=== PATIENT | female | born 1990 | race Two or more races ===

== ENCOUNTER 2018-11-18 11:48 | Emergency (ER) | payer OTHER ==
[2018-11-18 12:18] LABS: BASOPHILS % (AUTO) 0.6 %; EOSINOPHILS % (AUTO) 0.8 %; HGB - HEMOGLOBIN 14.5 g/dL (12.0-16.0); LYMPHOCYTES # (AUTO) 1.1 10^3/uL (1.5-3.5); MEAN CORPUSCULAR HGB CONC 33.7 g/dL (32.0-36.0); MEAN CORPUSCULAR VOLUME 91.9 fL (81.0-99.0); MEAN PLATELET VOLUME 10.3 fL (7.9-10.8); MONOCYTES # (AUTO) 0.4 10^3/uL (0.0-1.0); MONOCYTES % (AUTO) 8.5 %; NEUTROPHILS # (AUTO) 3.3 10^3/uL (1.5-6.6); NEUTROPHILS % (AUTO) 66.7 %; PLT - PLATELET COUNT 209 10^3/uL (130-450); RED BLOOD COUNT 4.68 10^6/uL (4.20-5.40); RED CELL DISTRIBUTION WIDTH 12.2 % (12.0-15.0)
[2018-11-18] MEDS ORDERED: ONDANSETRON 4 MG/2 ML VIAL IVP STA (12:26)
[2018-11-18] MEDS ORDERED: SODIUM CHLORIDE 0.9% 1,000 ML IV ONE (12:26)
[2018-11-18] MEDS ORDERED: KETOROLAC 30 MG/ML VIAL IVP STA (12:26)
[2018-11-18 12:27] LABS: GLUCOSE, URINE (UA) NEGATIVE (NEGATIVE); KETONES,URINE (UA) >=80 mg/dL (NEGATIVE); LEUKOCYTE ESTERASE, URINE SMALL (NEGATIVE); NITRITE,URINE NEGATIVE (NEGATIVE); OCCULT BLOOD,URINE SMALL (NEGATIVE); PROTEIN,URINE NEGATIVE (NEGATIVE); UROBILINOGEN,URINE 2 E.U./dL (NORMAL)
[2018-11-18 12:31] LABS: BILIRUBIN,URINE NEGATIVE (NEGATIVE); CLARITY,URINE HAZY (CLEAR); HCG UR QUAL NEGATIVE; ICTOTEST,URINE NEGATIVE
[2018-11-18 12:33] LABS: ALBUMIN 4.3 g/dL (3.2-5.5); ALBUMIN/GLOBULIN RATIO 1.2 (1.0-2.2); BILIRUBIN,TOTAL 0.6 mg/dL (0.2-1.0); CALCIUM 9.1 mg/dL (8.5-10.3); CREATININE 0.7 mg/dL (0.4-1.0); TOTAL PROTEIN 7.8 g/dL (6.7-8.2)
[2018-11-18 12:42] LABS: BACTERIA,URINE Moderate /HPF (None Seen); SQUAMOUS EPITHELIAL CELL,UR MANY Squamous (<= Few)
[2018-11-18] MEDS ORDERED: POTASSIUM CHLORIDE 20 MEQ TABLET PO STA ×2 (12:49→13:42)
[2018-11-18] MEDS ORDERED: cefTRIAXone 1 GM in SODIUM CHLORIDE 0.9% MINIBAG 100 ML IV STA (12:57)
[2018-11-18 13:23] VITALS: BP 130/68
--- NOTE | 2018-11-18 13:59 | ED Physician Documentation ---
PD HPI ABD PAIN - Stated complaint Stated Complaint: ABD PX - Chief complaint Chief Complaint: Abd Pain - History obtained from History obtained from: Patient - History of Present Illness Timing - onset: Yesterday Timing - duration: Days (2) Timing - details: Gradual onset, Still present Quality: Sharp, Pain Location: RUQ Radiation: Right flank Improved by: Laying still, Vomiting Worsened by: Moving, Position, Palpation Associated symptoms: Nausea, Vomiting Similar symptoms before: No diagnosis Recently seen: Clinic - Additional information Additional information: 28 y/o female with prior history of pelvic pain without diagnosis has developed pelvic cramping, urinary symptoms and pain in the right flank accompanied by nausea and vomiting. She feels ill. Review of Systems Constitutional: reports: Fever, Chills, Myalgias, Fatigue Eyes: denies: Decreased vision Ears: denies: Ear pain Nose: denies: Congestion Throat: denies: Sore throat Cardiac: denies: Chest pain / pressure, Palpitations Respiratory: denies: Dyspnea, Cough GI: reports: Abdominal Pain, Nausea, Vomiting : reports: Dysuria Skin: denies: Rash Musculoskeletal: reports: Back pain. denies: Neck pain, Extremity pain Neurologic: denies: Generalized weakness, Focal weakness, Numbness PD PAST MEDICAL HISTORY - Present Medications Home Medications: Ambulatory Orders Medication Instructions Recorded Confirmed Ondansetron Odt [Zofran] 4 mg TL Q6H PRN #10 tablet 11/18/18 Oxycodone HCl/Acetaminophen 1 - 2 each PO Q6H PRN #14 tablet 11/18/18 [Percocet 5-325 mg Tablet] Sulfamethoxazole/Trimethoprim 1 each PO BID #14 tablet 11/18/18 [Sulfamethoxazole-Tmp Ds Tablet] - Allergies Allergies/Adverse Reactions: Allergies Allergy/AdvReac Type Severity Reaction Status Date / Time No Known Drug Allergies Allergy Verified 11/18/18 12:02 PD ED PE NORMAL - Vitals Vital signs reviewed: Yes (hypertensive mild ) - General General: Alert and oriented X 3, Well developed/nourished, Other (appears to be in pain with brands editor tone and flat affect. ) - HEENT HEENT: Atraumatic, PERRL, EOMI - Neck Neck: Supple, no meningeal sign, No bony TTP - Cardiac Cardiac: RRR, No murmur - Respiratory Respiratory: No respiratory distress, Clear bilaterally - Abdomen Abdomen: Soft, Other (RUQ tenderness to bimanual palpation of the right kidney) - Back Back: No spinal TTP, Other (right CVA tenderness ) - Derm Derm: Normal color, Warm and dry, No rash - Extremities Extremities: No deformity, No edema - Neuro Neuro: Alert and oriented X 3, health science writer 2-12 intact, No motor deficit, No sensory deficit, Normal speech Eye Opening: Spontaneous Motor: Obeys Commands Verbal: Oriented GCS Score: 15 - Psych Psych: Normal mood Results - Vitals Vitals: Vital Signs - 24 hr 11/18/18 11/18/18 11:59 13:22 Temperature 35.6 C L 36.3 C L Heart Rate 80 69 Respiratory 20 16 Rate Blood Pressure 155/79 H 130/68 O2 Saturation 97 98 Oxygen O2 Source Room air - Labs Labs: Laboratory Tests 11/18/18 11/18/18 11/18/18 12:06 12:12 12:12 WBC 5.0 RBC 4.68 Hgb 14.5 Hct 43.0 MCV 91.9 MCH 31.0 MCHC 33.7 RDW 12.2 Plt Count 209 MPV 10.3 Neut # (Auto) 3.3 Lymph # (Auto) 1.1 L [place] # (Auto) 0.4 Eos # (Auto) 0.0 Baso # (Auto) 0.0 Absolute Nucleated RBC 0.00 Nucleated RBC % 0.0 Sodium 138 Potassium 3.1 L Chloride 101 Carbon Dioxide 27 Anion Gap 10.0 BUN 12 Creatinine 0.7 Estimated GFR (MDRD) 99 Glucose 102 H Calcium 9.1 Total Bilirubin 0.6 AST 20 ALT 19 Alkaline Phosphatase 52 Total Protein 7.8 Albumin 4.3 Globulin 3.5 Albumin/Globulin Ratio 1.2 Lipase 19 L Urine Color YELLOW Urine Clarity HAZY Urine pH 6.0 Ur Specific [place] 1.025 Urine Protein NEGATIVE Urine Glucose (UA) NEGATIVE Urine Ketones >=80 H Urine Occult Blood SMALL H Urine Nitrite NEGATIVE Urine Bilirubin NEGATIVE Urine Urobilinogen 2 H Ur Leukocyte Esterase SMALL H Urine RBC 11-25 H Urine WBC 6-10 H Ur Squamous Epith Cells MANY Squamous H Urine Bacteria Moderate H Ur Microscopic Review INDICATED Urine Culture Comments NOT INDICATED Urine HCG, Qual NEGATIVE Procedures - Bedside sono Bedside sono by EMP: Examination of the right kidney with the bedside ultrasound shows a sonographically tender kidney without evidence of hydronephrosis. The left kidney is sonographically nontender. - IVC sono (time) 1220 Bedside IVC sono: IVC measures (cm) (1.12), IVC collapsed c insp (cm) (cokmplete), Dehydration (est 1-2 liter deficit) PD MEDICAL DECISION MAKING - ED course Complexity details: reviewed old records, reviewed results, re-evaluated patient, considered differential, d/w patient ED course: 28-year-old female with right flank pain urinary symptoms nausea and vomiting is found to be dehydrated and has a tender right kidney as well as evidence of infection in urine collected from the bladder. She is administered intravenous saline Toradol Rocephin and Zofran. She feels much better at the conclusion of treatment. Departure - Departure Disposition: 01 Home, Self Care Clinical Impression: Pyelonephritis Condition: Stable Instructions: ED Kidney Infec Female Follow-Up: IRENE ZALDIVAR [Primary Care Provider] - Prescriptions: Ondansetron Odt [Zofran] 4 mg TL Q6H PRN #10 tablet PRN Reason: Nausea / Vomiting Oxycodone HCl/Acetaminophen [Percocet 5-325 mg Tablet] 1 - 2 each PO Q6H PRN #14 tablet PRN Reason: pain Sulfamethoxazole/Trimethoprim [Sulfamethoxazole-Tmp Ds Tablet] 1 each PO BID #14 tablet Forms: Activity restrictions
== END 2018-11-18 14:10 | disposition home or self-care (01) ==
LOC: ED 11:48
DX: N12 Tubulo-interstitial nephritis, not specified as acute or chronic (principal); E86.0 Dehydration
CPT/HCPCS: 36415; 80053; 81001; 81025; 83690; 85025; 96361; 96365; 96375; 99283; 99284; A9270; 81003; 87086

== ENCOUNTER 2019-04-27 19:52 | Emergency (ER) | payer OTHER ==
[2019-04-27 20:13] LABS: BILIRUBIN,URINE NEGATIVE (NEGATIVE); GLUCOSE, URINE (UA) NEGATIVE (NEGATIVE); KETONES,URINE (UA) NEGATIVE (NEGATIVE); LEUKOCYTE ESTERASE, URINE NEGATIVE (NEGATIVE); NITRITE,URINE NEGATIVE (NEGATIVE); OCCULT BLOOD,URINE TRACE-INTA (NEGATIVE); PROTEIN,URINE NEGATIVE (NEGATIVE); UROBILINOGEN,URINE 0.2 (NORMAL) E.U./dL (NORMAL)
[2019-04-27 20:14] LABS: CLARITY,URINE CLEAR (CLEAR); HCG UR QUAL NEGATIVE
[2019-04-27 20:21] LABS: BACTERIA,URINE None Seen /HPF (None Seen); RBC,URINE 0-5 /HPF (0-5); SQUAMOUS EPITHELIAL CELL,UR FEW Squamous (<= Few)
--- NOTE | 2019-04-27 21:47 | ED Physician Documentation ---
PD HPI BACK PAIN - Stated complaint Stated Complaint: BACK/R SIDE PX - Chief complaint Chief Complaint: Back Pain - History obtained from History obtained from: Patient - History of Present Illness Timing - onset: How many weeks ago (1-2) Timing - duration: Weeks Timing - details: Gradual onset, Intermittant Pain level now: 6 Location: Mid, Lower, Right Quality: Pain Associated symptoms: No: Fever, Weakness, Numbness, Incontinent of urine, Unable to urinate, Hematuria, Incontinent of stool Improves with: No: Rest, Ice, Position, Meds, Nothing Worsened by: No: Movement, Lifting, Twisting, Palpation Recently seen: Emergency Dept - Additional information Additional information: several ED visits to different EDs, most recent before [facility]. she had called [facility] and was told no appointments available and advised to go to ED. at that time, she had testing that suggested UTI, pyelo (although she days the doctor told her were going to treat the patient, not the numbers, so unclear if w/u revealed the actual diagnosis.) completed abx today, but symptoms of low back pain, particularly on right, with dysuria, persist. she called [facility] and was told they have no appointments and advised to go to ED Review of Systems Constitutional: reports: Reviewed and negative Cardiac: reports: Reviewed and negative Respiratory: reports: Reviewed and negative GI: reports: Reviewed and negative : reports: Dysuria, Frequency. denies: Now EGA Musculoskeletal: reports: Back pain PD PAST MEDICAL HISTORY - Past Medical History Past Medical History: Yes Cardiovascular: None Respiratory: None Neuro: None Endocrine/Autoimmune: None GI: None PROFESSOR OF BIBLICAL STUDIES: None : None HEENT: None Psych: None Musculoskeletal: None Derm: None - Past Surgical History Past Surgical History: Yes /PROFESSOR OF BIBLICAL STUDIES: section - Present Medications Home Medications: Ambulatory Orders Medication Instructions Recorded Confirmed Ondansetron Odt [Zofran] 4 mg TL Q6H PRN #10 tablet 11/18/18 Oxycodone HCl/Acetaminophen 1 - 2 each PO Q6H PRN #14 tablet 11/18/18 [Percocet 5-325 mg Tablet] Sulfamethoxazole/Trimethoprim 1 each PO BID #14 tablet 11/18/18 [Sulfamethoxazole-Tmp Ds Tablet] Hydrocodone/Acetaminophen 1 - 2 each PO Q6H PRN #10 tablet 04/28/19 [Hydrocodon-Acetaminophen 5-325] - Allergies Allergies/Adverse Reactions: Allergies Allergy/AdvReac Type Severity Reaction Status Date / Time No Known Drug Allergies Allergy Verified 11/18/18 12:02 - Social History Does the pt smoke?: No Smoking Status: Never smoker Does the pt drink ETOH?: Yes Does the pt have substance abuse?: No - Immunizations Immunizations are current?: Yes - POLST Patient has POLST: No PD ED PE NORMAL - Vitals Vital signs reviewed: Yes - General General: Alert and oriented X 3, No acute distress, Well developed/nourished - Neck Neck: Supple, no meningeal sign - Cardiac Cardiac: RRR, No murmur - Respiratory Respiratory: No respiratory distress, Clear bilaterally - Abdomen Abdomen: Soft, Non tender - Back Back: No CVA TTP - Derm Derm: Normal color, Warm and dry, No rash Results - Vitals Vitals: Oxygen O2 Source Room air - Labs Labs: Laboratory Tests 04/27/19 04/27/19 04/27/19 20:05 20:05 22:15 WBC 7.9 RBC 4.14 L Hgb 13.1 Hct 38.6 MCV 93.2 MCH 31.6 H MCHC 33.9 RDW 11.9 L Plt Count 228 MPV 10.1 Neut # (Auto) 5.2 Lymph # (Auto) 2.1 [place] # (Auto) 0.4 Eos # (Auto) 0.1 Baso # (Auto) 0.0 Absolute Nucleated RBC 0.00 Nucleated RBC % 0.0 Sodium Potassium Chloride Carbon Dioxide Anion Gap BUN Creatinine Estimated GFR (MDRD) Glucose Calcium Total Bilirubin AST ALT Alkaline Phosphatase Total Protein Albumin Globulin Albumin/Globulin Ratio Lipase HCG, Quant Urine Color YELLOW Urine Clarity CLEAR Urine pH 6.0 Ur Specific [place] 1.015 1.015 Urine Protein NEGATIVE Urine Glucose (UA) NEGATIVE Urine Ketones NEGATIVE Urine Occult Blood TRACE-INTA Urine Nitrite NEGATIVE Urine Bilirubin NEGATIVE Urine Urobilinogen 0.2 (NORMAL) Ur Leukocyte Esterase NEGATIVE Urine RBC 0-5 Urine WBC 0-3 Ur Squamous Epith Cells FEW Squamous Urine Bacteria None Seen Urine Culture Comments NOT INDICATED Urine HCG, Qual NEGATIVE 04/27/19 04/27/19 22:15 22:15 WBC RBC Hgb Hct MCV MCH MCHC RDW Plt Count MPV Neut # (Auto) Lymph # (Auto) [place] # (Auto) Eos # (Auto) Baso # (Auto) Absolute Nucleated RBC Nucleated RBC % Sodium 139 Potassium 4.1 Chloride 102 Carbon Dioxide 27 Anion Gap 10.0 BUN 14 Creatinine 0.6 Estimated GFR (MDRD) 117 Glucose 120 H Calcium 9.6 Total Bilirubin 0.5 AST 19 ALT 17 Alkaline Phosphatase 56 Total Protein 7.5 Albumin 4.4 Globulin 3.1 Albumin/Globulin Ratio 1.4 Lipase 23 HCG, Quant < 0.60 Urine Color Urine Clarity Urine pH Ur Specific [place] Urine Protein Urine Glucose (UA) Urine Ketones Urine Occult Blood Urine Nitrite Urine Bilirubin Urine Urobilinogen Ur Leukocyte Esterase Urine RBC Urine WBC Ur Squamous Epith Cells Urine Bacteria Urine Culture Comments Urine HCG, Qual - Rads (name of study) CT A/P Radiology: Prelim report reviewed, See rad report PD MEDICAL DECISION MAKING - ED course Complexity details: reviewed results, re-evaluated patient, considered differential, d/w patient Departure - Departure Disposition: 01 Home, Self Care Clinical Impression: Ovarian cyst Condition: Good Instructions: ED Cyst Ovarian Follow-Up: IRENE ZALDIVAR [Primary Care Provider] - (Call in the morning to arrange for next available appointment) Prescriptions: Hydrocodone/Acetaminophen [Hydrocodon-Acetaminophen 5-325] 1 - 2 each PO Q6H PRN #10 tablet PRN Reason: pain Forms: Activity restrictions Discharge Date/Time: 04/28/19 00:21
[2019-04-27] MEDS ORDERED: ONDANSETRON 4 MG/2 ML VIAL IVP STA (22:06)
[2019-04-27] MEDS ORDERED: KETOROLAC 30 MG/ML VIAL IVP STA (22:06)
[2019-04-27] MEDS ORDERED: IOVERSOL 320 100 ML VIAL IVP ONE ×2 (22:19→23:09)
[2019-04-27 22:24] LABS: BASOPHILS % (AUTO) 0.5 %; EOSINOPHILS # (AUTO) 0.1 10^3/uL (0.0-0.7); EOSINOPHILS % (AUTO) 0.9 %; HGB - HEMOGLOBIN 13.1 g/dL (12.0-16.0); LYMPHOCYTES # (AUTO) 2.1 10^3/uL (1.5-3.5); LYMPHOCYTES % (AUTO) 26.3 %; MEAN CORPUSCULAR HEMOGLOBIN 31.6 pg (27.0-31.0); MEAN CORPUSCULAR HGB CONC 33.9 g/dL (32.0-36.0); MEAN CORPUSCULAR VOLUME 93.2 fL (81.0-99.0); MEAN PLATELET VOLUME 10.1 fL (7.9-10.8); MONOCYTES # (AUTO) 0.4 10^3/uL (0.0-1.0); MONOCYTES % (AUTO) 5.5 %; NEUTROPHILS # (AUTO) 5.2 10^3/uL (1.5-6.6); NEUTROPHILS % (AUTO) 66.5 %; PLT - PLATELET COUNT 228 10^3/uL (130-450); RED BLOOD COUNT 4.14 10^6/uL (4.20-5.40); RED CELL DISTRIBUTION WIDTH 11.9 % (12.0-15.0); WHITE BLOOD COUNT 7.9 x10^3/uL (4.8-10.8)
[2019-04-27 22:43] LABS: ALBUMIN 4.4 g/dL (3.2-5.5); ALBUMIN/GLOBULIN RATIO 1.4 (1.0-2.2); BILIRUBIN,TOTAL 0.5 mg/dL (0.2-1.0); CALCIUM 9.6 mg/dL (8.5-10.3); CREATININE 0.6 mg/dL (0.4-1.0); TOTAL PROTEIN 7.5 g/dL (6.7-8.2)
--- NOTE | 2019-04-27 23:29 | CT Report ---
Reason: RLQ pain Procedure Date: 04/27/2019 Accession Number: [id number] / [id number] Procedure: CT - Abdomen/Pelvis W CPT Code: Final Report FULL RESULT: EXAM: CT ABDOMEN AND PELVIS EXAM DATE: 04/27/2019 11:11 PM. CLINICAL HISTORY: RLQ pain. COMPARISONS: None. TECHNIQUE: Routine helical CT imaging was performed through the abdomen and pelvis. IV contrast: OPTIRAY 320, 100 cc. Enteric contrast: No. Reconstructions: Coronal and sagittal. In accordance with CT protocol optimization, one or more of the following dose reduction techniques were utilized for this exam: automated exposure control, adjustment of mA and/or KV based on patient size, or use of iterative reconstructive technique. FINDINGS: Lung Bases: Unremarkable. Liver: Normal. No masses. Gallbladder/Bile Ducts: Unremarkable. Spleen: Normal. Pancreas: Normal. Adrenal Glands: Normal. Kidneys: Normal. No masses or hydronephrosis. Peritoneal Cavity/Bowel: Normal. No free fluid, free air or adenopathy. No masses or acute inflammatory process. The appendix is well visualized and normal. Pelvic Organs: 2.5 cm cyst in the right adnexa is likely ovarian and probably physiologic in a 29-year-old female. Uterus and left adnexa are unremarkable. Urinary bladder is not well-distended but is normal in appearance. Vasculature: No aneurysms or other significant abnormality. Bones: No significant abnormality. Other: None. IMPRESSION: 2.5 cm cyst in the right ovary is probably physiologic. No free fluid is seen. Appendix is normal. RADIA
[2019-04-28] MEDS ORDERED: HYDROcod/ACETAM 5/325 MG TABLET PO STA (00:09)
[2019-04-28 00:19] VITALS: BP 126/62
== END 2019-04-28 00:21 | disposition home or self-care (01) ==
LOC: ED 19:52
DX: N83.201 Unspecified ovarian cyst, right side (principal)
CPT/HCPCS: 36415; 74177; 80053; 81001; 81025; 83690; 84702; 85025; 96374; 99284; A9270; Q9967; 87086

== ENCOUNTER 2022-03-20 10:18 | Outpatient (CLI) | payer OTHER ==
[2022-03-20 11:16] LABS: HCT - HEMATOCRIT 45.7 % (37.0-47.0); HGB - HEMOGLOBIN 15.3 g/dL (12.0-16.0); MEAN CORPUSCULAR HEMOGLOBIN 31.2 pg (27.0-31.0); MEAN CORPUSCULAR HGB CONC 33.5 g/dL (32.0-36.0); MEAN CORPUSCULAR VOLUME 93.3 fL (81.0-99.0); MEAN PLATELET VOLUME 10.3 fL (7.9-10.8); RED BLOOD COUNT 4.9 10^6/uL (4.20-5.40); RED CELL DISTRIBUTION WIDTH 12.3 % (12.0-15.0); WHITE BLOOD COUNT 6.5 x10^3/uL (4.8-10.8)
[2022-03-20 11:35] LABS: CHOL/HDL RATIO 4.8 (<4.4); CHOLESTEROL 247 mg/dL; HDL CHOLESTEROL 52 mg/dL; LDL CHOLESTEROL,CALCULATED 167 mg/dL; LDL/HDL RATIO 3.2 (<4.4); TRIGLYCERIDES 139 mg/dL; VLDL CHOLESTEROL 28 mg/dL
[2022-03-20 11:49] LABS: THYROID STIMULATING HORMONE 1.47 uIU/mL (0.34-5.60)
[2022-03-20 11:54] LABS: FREE T4 (FREE THYROXINE) 0.92 ng/dL (0.58-1.64)
[2022-03-20 12:17] LABS: FOLLICLE STIMULATING HORMONE 7.05 mIU/mL
[2022-03-20 12:18] LABS: LUTEINIZING HORMONE 2.68 mIU/mL
[2022-03-20 12:35] LABS: ESTIMATED AVERAGE GLUCOSE 97 mg/dL (70-100)
[2022-03-21 05:10] LABS: VITAMIN D 25-HYDROXY 42.6 ng/mL (30.0-100.0)
[2022-03-21 08:09] LABS: ESTRADIOL 51.1 pg/mL (.); PROGESTERONE 0.2 ng/mL (.)
[2022-03-21 21:07] LABS: FREE TESTOSTERONE(DIRECT) 3.5 pg/mL (0.0-4.2); SEX HORM BINDING GLOB SERUM 43.8 nmol/L (24.6-122.0)
== END 2022-03-20 10:19 | disposition home or self-care (01) ==
LOC: LAB 10:18
PROVIDERS: ATTEND Nurse Practitioner
DX: E28.2 Polycystic ovarian syndrome (principal); E66.9 Obesity, unspecified; Z13.29 Encounter for screening for other suspected endocrine disorder; Z13.220 Encounter for screening for lipoid disorders; Z13.21 Encounter for screening for nutritional disorder; Z13.0 Encounter for screening for diseases of the blood and blood-forming organs and certain disorders involving the immune mechanism
CPT/HCPCS: 36415; 80061; 82306; 82397; 82627; 82670; 82728; 83001; 83002; 83036; 83498; 83721; 84144; 84270; 84402; 84403; 84439; 84443; 85027

== ENCOUNTER 2022-04-12 09:44 | Outpatient (CLI) | payer OTHER ==
--- NOTE | 2022-04-12 14:12 | Ultrasound Report ---
PROCEDURE: Pelvic w/Transvaginal INDICATIONS: POLYCYSTIC OVARIAN SYN TECHNIQUE: Real-time scanning was performed of the pelvic organs, with image documentation. Additional endovagi nal scanning was necessary due to incomplete visualization of the adnexal and endometrial structures by transabdominal scanning. COMPARISON: CT abdomen/pelvis 04/27/2019 FINDINGS: Uterus: Uterus is anteverted and normal in size at 9.3 x 6.7 x 5.0 cm. The myometrium is homogeneou s. The endometrium measures 10.3 mm in combined thickness. Intrauterine device is seen in expected position within the endometrial canal. Ovaries: The right ovary measures 3.2 x 2.7 x 1.5 cm, with a calculated ovarian volume of 6.6 cc. T he left ovary measures 2.9 x 2.5 x 1.6 cm, with a calculated ovarian volume of 5.9 cc. The ovaries h ave a normal sonographic appearance. Ovaries are not well visualized on transvaginal images, which c ompromises evaluation of ovarian follicles. There does not appear to be greater than 12 follicles vis ualized in either ovary.. No adnexal masses are seen. Other: No pathologic free abdominal or pelvic fluid. IMPRESSION: Ovaries are better visualized on transabdominal images related transvaginal images, whic h compromises fine detail. However, the ovaries are not enlarged. There appears to be less than 12 fo llicles in each ovary. Reviewed by: Wilson Mcmillan MD on 04/12/2022 2:10 PM PST Approved by: Wilson Mcmillan MD on 04/12/2022 2:10 PM PST Station ID: [id number]
== END 2022-04-12 09:45 | disposition home or self-care (01) ==
LOC: DI 09:44
PROVIDERS: ATTEND Nurse Practitioner
DX: E28.2 Polycystic ovarian syndrome (principal)

== ENCOUNTER 2022-07-29 12:26 | Outpatient (CLI) | payer OTHER ==
--- NOTE | 2022-07-30 11:32 | Mammography Report ---
BILATERAL DIGITAL DIAGNOSTIC MAMMOGRAM 3D/2D: 07/29/2022 CLINICAL: Focal left breast pain. Baseline exam. No prior exams were available for comparison. There are scattered areas of fibroglandular density in both breasts (category b / 25%-50% glandular t issue). No significant masses, calcifications, or other findings are seen in either breast. IMPRESSION: INCOMPLETE: NEEDS ADDITIONAL IMAGING EVALUATION There is no mammographic abnormality seen in the left breast to correspond with the pain, however, ta rgeted ultrasound of the left breast is recommended and will be performed immediately following this exam. Based on the Tyrer Cuzick model (a risk assessment model) the patients lifetime risk is 10.5% and he r 10 year risk is 0.6%. According to the ACR, ACS, and NCCN guidelines, an annual breast MRI exam damien ng with mammogram is recommended if the patients lifetime risk is 20% or greater. This exam was interpreted at Station ID: [id number]. NOTE: For mammograms, a report in lay terms will be sent to the patient. Approximately 15% of breast malignancies will not be visualized mammographically. In the management of a palpable breast mass, a negative mammogram must not discourage biopsy of a clinically suspicious lesion. Electronically Signed By: Maggie Syed M.D. lk/:07/29/2022 13:05:12 ACR BI-RADS Category 0: Incomplete 3340F PARENCHYMAL PATTERN: (A) - The breast(s) demonstrate(s) scattered fibroglandular densities. BI-RADS CATEGORY: (0) - 0 Ultrasound [id number] Immediate follow-up LATERALITY: (B)
--- NOTE | 2022-07-30 11:32 | Ultrasound Report ---
LIMITED ULTRASOUND OF LEFT BREAST: 07/29/2022 CLINICAL: Focal left breast pain. Comparison is made to exam dated: 07/29/2022 mammogram - [facility]. Ultrasound of the left breast 3 o'clock region was performed on the area of interest. Oliva scale estela ges of the real-time examination were reviewed. IMPRESSION: NEGATIVE There is no sonographic evidence of malignancy. There is no mammographic or sonographic abnormality seen in the left breast to correspond with the pa in, however, clinical followup is recommended. This exam was interpreted at Station ID: [id number]. Electronically Signed By: Maggie Syed M.D. lk/:07/29/2022 13:38:25 Ultrasound BI-RADS: 1 Negative BI-RADS CATEGORY: (1) - 1 Unspecified - other recall n/a LATERALITY: (B)
== END 2022-07-29 12:27 | disposition home or self-care (01) ==
LOC: DI 12:26
PROVIDERS: ATTEND Nurse Practitioner
DX: N64.4 Mastodynia (principal)

== ENCOUNTER 2022-11-07 07:03 | Outpatient (CLI) | payer OTHER ==
--- NOTE | 2022-11-07 09:00 | Ultrasound Report ---
PROCEDURE: Pelvic w/Transvaginal INDICATIONS: RIGHT PELVIC PAIN TECHNIQUE: Real-time scanning was performed of the pelvic organs, with image documentation. Additional endovagi nal scanning was necessary due to incomplete visualization of the adnexal and endometrial structures by transabdominal scanning. COMPARISON: Pelvic ultrasound 04/12/2022. FINDINGS: Uterus: Uterus is anteverted and normal in size at 8.1 x 4.4 x 4.5 cm. The myometrium is homogeneou s. The endometrium measures 5.8 mm in combined thickness. Intrauterine device in place in appropria te position. Ovaries: The right ovary measures 2.6 x 2.7 x 2.3 cm, with a calculated ovarian volume of 8.4 cc. T he left ovary measures 3.1 x 1.8 x 2.1 cm, with a calculated ovarian volume of 6.1 cc. The ovaries h ave a normal sonographic appearance. The right ovary demonstrates less than 12 follicles, the left o vary is not well seen. No adnexal masses are seen. No cystic lesions measuring greater than 3 cm. Other: No pathologic free abdominal or pelvic fluid. IMPRESSION: 1.No cause for patient's pain is identified. 2.Intrauterine device in place in appropriate position. 3.Left ovary is not well seen. Ovaries are grossly normal in appearance. Reviewed by: Venkatesh Briones MD on 11/07/2022 8:59 AM PDT Approved by: Venkatesh Briones MD on 11/07/2022 8:59 AM PDT Station ID: [id number]
== END 2022-11-07 07:04 | disposition home or self-care (01) ==
LOC: DI 07:03
PROVIDERS: ATTEND Nurse Practitioner
DX: R10.2 Pelvic and perineal pain (principal); Z97.5 Presence of (intrauterine) contraceptive device

== ENCOUNTER 2022-11-22 08:38 | Outpatient (CLI) | payer OTHER ==
--- NOTE | 2022-11-22 10:38 | MRI Report ---
PROCEDURE: PELVIS W/WO INDICATIONS: RIGHT PELVIC PAIN CONTRAST: GADAVIST 10.4 ML TECHNIQUE: Coronal ultra fast SE, sagittal breath-hold T2 FSE; axial T1 FSE with and without fat saturation thro ugh the pelvis. Optional long- and short-axis uterine nonbreath-hold T2 FSE through the uterus. Sag ittal or axial dynamic ultra fast GE during administration of contrast. Post-contrast axial or coron al ultra fast GE / 2-D spoiled GE with fat saturation from the iliac crests to the symphysis. Option al diffusion weighted imaging and ADC may be performed. COMPARISON: Pelvic ultrasound 11/07/2022. CT abdomen pelvis 04/27/2019. FINDINGS: Image quality: Excellent. Uterus: Uterus is anteverted normal in size measuring 7.8 cm. section scar. Endometrium is normal in thickness measuring 0.5 cm. IUD centered in the endometrial canal.. Junctional zone is nor mal in thickness at 12 mm or less. Adnexa: Both ovaries are normal in size, without suspicious cystic or solid lesions. Multiple small ovarian follicles bilaterally. Urinary system: Bladder is mostly decompressed. Distal ureters are non distended. Urethra appears normal in morphology. Nodes and vessels: No pelvic or inguinal adenopathy by size criteria. Iliac vessels are normal in s ize. Bowel and peritoneum: No pathologic free pelvic fluid. Inferior colon and small bowel loops are nor mal in caliber. Soft tissues: No inguinal hernias. No findings of pelvic floor incompetence in the absence of provo cation. Bones: Marrow demonstrates normal overall signal. IMPRESSION: 1. No mass. No suspicious ovarian cyst. No suspicious enhancement or restricted diffusion. 2. IUD is centered in the endometrial canal. section scar. 3. Normal appendix. No free fluid. Reviewed by: Sandor Moreno MD on 11/22/2022 10:36 AM PDT Approved by: Sandor Moreno MD on 11/22/2022 10:36 AM PDT Station ID: [id number]
== END 2022-11-22 08:39 | disposition home or self-care (01) ==
LOC: DI 08:38
PROVIDERS: ATTEND Nurse Practitioner
DX: R10.2 Pelvic and perineal pain (principal); Z97.5 Presence of (intrauterine) contraceptive device
CPT/HCPCS: 72197; A9585

== ENCOUNTER 2023-02-23 17:38 | Emergency (ER) | payer OTHER ==
[2023-02-23] MEDS ORDERED: HYDROcod/ACET 5/325 Prepack 4 PO STA ×2 (18:37→19:53)
[2023-02-23] MEDS ORDERED: RABIES VACCINE 2.5 UNIT SYRINGE IM ONE (18:37)
[2023-02-23] MEDS ORDERED: HYDROcod/ACETAM 5/325 MG TABLET PO STA (18:37)
[2023-02-23] MEDS ORDERED: RABIES IMMUNE GLOBULIN 300 UNITS/2 ML IM STA ×2 (18:37→19:53)
[2023-02-23] MEDS ORDERED: AMOX/CLAV 875 MG/125 MG TABLET PO STA (18:38)
--- NOTE | 2023-02-23 18:43 | ED Physician Documentation ---
PD HPI WOUND RECHECK - Stated complaint Stated Complaint: DOG BITE RT LEG - Chief complaint Chief Complaint: Wound - Histroy obtained from History obtained from: Patient - History of Present Illness Location: Right Lower Extremity (r thigh dog bite, unknown dog, unknown dog vaxs. 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 - Present Medications Home Medications: Ambulatory Orders Medication Instructions Recorded Confirmed Ondansetron Odt [Zofran] 4 mg TL Q6H PRN #10 tablet 11/18/18 Oxycodone HCl/Acetaminophen 1 - 2 each PO Q6H PRN #14 tablet 11/18/18 [Percocet 5-325 mg Tablet] Sulfamethoxazole/Trimethoprim 1 each PO BID #14 tablet 11/18/18 [Sulfamethoxazole-Tmp Ds Tablet] Hydrocodone/Acetaminophen 1 - 2 each PO Q6H PRN #10 tablet 04/28/19 [Hydrocodon-Acetaminophen 5-325] Amox/Clav 875/125 [Augmentin] 1 each PO Q12H #10 tablet 02/23/23 HYDROcod/ACETAM 5/325 [[place] 5/325] 1 - 2 tab PO Q6H PRN #10 tablet 02/23/23 - Allergies Allergies/Adverse Reactions: Allergies Allergy/AdvReac Type Severity Reaction Status Date / Time No Known Drug Allergies Allergy Verified 02/23/23 17:41 - Social History Does the pt smoke?: No Smoking Status: Never smoker Does the pt drink ETOH?: Yes Does the pt have substance abuse?: No - Immunizations Immunizations are current?: Yes - POLST Patient has POLST: No PD ED PE NORMAL - Vitals Vital signs reviewed: Yes - General General: Alert and oriented X 3, No acute distress - Extremities Extremities: Other (4 puncture wounds with bruising to the anterior right thigh) - Neuro Neuro: Alert and oriented X 3, Normal speech Results - Vitals Vitals: Vital Signs - 24 hr 02/23/23 17:42 Temperature 36.5 C Heart Rate 80 Respiratory 18 Rate Blood Pressure 140/66 H O2 Saturation 100 Oxygen O2 Source Room air PD Medical Decision Making - ED course ED course: We discussed rabies vaccination. It sounds like where she was it will be unlikely that the culprit canine can be found and she would like to go ahead with it. As such I ordered Augmentin, pain control, and rabies vaccination and immunoglobulin. Departure - Departure Disposition: Home, Self Care Clinical Impression: Animal bite with open wound Condition: Good Record reviewed to determine appropriate education?: Yes Instructions: Bites Scratches Animal Prescriptions: Amox/Clav 875/125 [Augmentin] 1 each PO Q12H #10 tablet HYDROcod/ACETAM 5/325 [[place] 5/325] 1 - 2 tab PO Q6H PRN #10 tablet PRN Reason: Pain Comments: I sent your prescription electronically to the [facility] in [place]. You will need further rabies vaccination on Friday, next Friday, and the Friday thereafter. See the attached form about how you can arrange this, you are alway s welcome to return to the emergency department for these vaccinations if there is no other option. I am prescribing a short course of narcotic pain medication for you. These are potentially dangerous and addictive medications that should be used carefully. These medications may constipate you. Take an idyl-ybu-hteqljc stool softener (docusate) twice daily with plenty of water while taking these medications. If you go 24 hours without a bowel movement, take elsy-tys-envaglm miralax, per package instructions. Do not drink or drive while taking these medications. If you received narcotic or sedating medications while in the emergency department, do not drive for 24 hours. Store this medication in a safe, secure place and out of reach of children. It is a violation of federal law to give or sell this medication to another person or to use in a manner other than prescribed. The ED will not refill narcotic prescriptions, including prescriptions lost or stolen. To dispose of unwanted medications: 1. [facility] provides a drop box for medication in pill form only (no liquids) 8:00 am to 4:30 p.m. Friday-Friday in the lobby of the [facility], [address] Empty pills into ziplock bag before disposal. Call [phone] for information. 2.[employer] is a free service available to all [facility] residents. Go to https://med-[email or web address]/locations/[place]/ Note that many narcotic pain relievers also contain Tylenol/acetaminophen. Please ensure that your total dose of acetaminophen from all sources does not exceed 3 g (3000 mg) per day. Forms: PCP List, Rabies Vaccine Series (MAC)
[2023-02-23 20:30] VITALS: O2SAT 99
[2023-02-23 20:39] VITALS: BP 142/90
== END 2023-02-23 20:35 | disposition home or self-care (01) ==
LOC: ED 17:38
DX: S71.151A Open bite, right thigh, initial encounter (principal); W54.0XXA Bitten by dog, initial encounter; Z20.3 Contact with and (suspected) exposure to rabies; Z23 Encounter for immunization
CPT/HCPCS: 99282; 99283

== ENCOUNTER 2023-02-26 11:58 | Emergency (ER) | payer OTHER ==
[2023-02-26 12:39] VITALS: BP 143/73; O2SAT 100
[2023-02-26] MEDS ORDERED: RABIES VACCINE 2.5 UNIT SYRINGE IM ONE (13:04)
--- NOTE | 2023-02-26 13:20 | ED Physician Documentation ---
History of Present Illness - Stated complaint Stated Complaint: RABIES SHOT - Chief complaint Chief Complaint: General - History obtained from History obtained from: Patient - History of Present Illness Timing: Today Pain level max: 0 Pain level now: 0 - Additonal information Additional information: 33-year-old female presents to the emergency department for her second rabies vaccination. She has had no side effects from her first vaccination. She did suffer a dog bite about 3 days ago. She states the bite is healing well. There is bruising, but no drainage. No fevers. No chills. Patient otherwise asymptomatic. 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 HEENT: Tonsil/Adenoidectomy - Present Medications Home Medications: Ambulatory Orders Medication Instructions Recorded Confirmed Amox/Clav 875/125 [Augmentin] 1 each PO Q12H #10 tablet 02/23/23 HYDROcod/ACETAM 5/325 [[place] 5/325] 1 - 2 tab PO Q6H PRN #10 tablet 02/23/23 metFORMIN [Glucophage] 500 mg PO DAILY 02/23/23 02/23/23 - Allergies Allergies/Adverse Reactions: Allergies Allergy/AdvReac Type Severity Reaction Status Date / Time No Known Drug Allergies Allergy Verified 02/26/23 12:31 - Social History Does the pt smoke?: No Smoking Status: Never smoker Does the pt drink ETOH?: Yes Does the pt have substance abuse?: No - Immunizations Immunizations are current?: Yes - POLST Patient has POLST: No PD ED PE NORMAL - Vitals Vital signs reviewed: Yes - General General: Alert and oriented X 3, No acute distress - HEENT HEENT: Moist mucous membranes - Neck Neck: Supple, no meningeal sign - Cardiac Cardiac: RRR, Strong equal pulses - Respiratory Respiratory: No respiratory distress, Clear bilaterally - Derm Derm: Warm and dry - Extremities Extremities: Other (dog bite to R thigh, healing well, bruising present. no signs of infection.) - Neuro Neuro: Alert and oriented X 3 - Psych Psych: Normal mood, Normal affect Results - Vitals Vitals: Vital Signs - 24 hr 02/26/23 12:28 Temperature 37.1 C Heart Rate 81 Respiratory 16 Rate Blood Pressure 143/73 H O2 Saturation 100 Oxygen O2 Source Room air PD Medical Decision Making - ED course Complexity details: considered differential, d/w patient ED course: 33-year-old female was given her second dose of rabies vaccination. Her dog bite wound appears to be healing well. No signs of infection. She will continue her antibiotics. Patient counseled regarding signs and symptoms for which I believe and urgent re-evaluation would be necessary. Patient with good understanding of and agreement to plan and is comfortable going home at this time This document was made in part using voice recognition software. While efforts are made to proofread this document, sound alike and grammatical errors may occur. Departure - Departure Disposition: 01 Home, Self Care Clinical Impression: Need for rabies vaccination Condition: Good Instructions: Rabies Follow-Up: your,doctor [Other] Comments: You have received your second rabies vaccination today. There are a total of 4 vaccinations. You received 1 on day 0, today was day 3, then you need additional doses on day 7 and day 14. Forms: PCP List
== END 2023-02-26 13:30 | disposition home or self-care (01) ==
LOC: ED 11:58
DX: Z29.14 Encounter for prophylactic rabies immune globulin (principal); W54.0XXD Bitten by dog, subsequent encounter
CPT/HCPCS: 90471; 99282

== ENCOUNTER 2023-03-02 13:14 | Emergency (ER) | payer OTHER ==
[2023-03-02 13:37] VITALS: BP 152/89; O2SAT 99
[2023-03-02] MEDS ORDERED: RABIES VACCINE 2.5 UNIT SYRINGE IM ONE (13:42)
--- NOTE | 2023-03-02 14:01 | ED Physician Documentation ---
History of Present Illness - Stated complaint Stated Complaint: 3RD RABIES SHOT - Chief complaint Chief Complaint: General - History obtained from History obtained from: Patient - Additonal information Additional information: 33-year-old female presents for her third rabies shot after a dog bite. She states she started to notice some swelling in the center of the bite area where the bruise is located, but otherwise has no complaints. Review of Systems Constitutional: denies: Fever, Chills Skin: reports: Bite / sting (healing), Other (contusion). 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 HEENT: Tonsil/Adenoidectomy - Present Medications Home Medications: Ambulatory Orders Medication Instructions Recorded Confirmed Amox/Clav 875/125 [Augmentin] 1 each PO Q12H #10 tablet 02/23/23 HYDROcod/ACETAM 5/325 [[place] 5/325] 1 - 2 tab PO Q6H PRN #10 tablet 02/23/23 metFORMIN [Glucophage] 500 mg PO DAILY 02/23/23 02/23/23 - Allergies Allergies/Adverse Reactions: Allergies Allergy/AdvReac Type Severity Reaction Status Date / Time No Known Drug Allergies Allergy Verified 02/26/23 12:31 - Social History Does the pt smoke?: No Smoking Status: Never smoker Does the pt drink ETOH?: Yes Does the pt have substance abuse?: No - Immunizations Immunizations are current?: Yes - POLST Patient has POLST: No PD ED PE NORMAL - Vitals Vital signs reviewed: Yes - General General: Alert and oriented X 3, No acute distress, Well developed/nourished - Respiratory Respiratory: No respiratory distress - Derm Derm: Warm and dry, No rash, Other (healing bite on anterior R thigh. Surrounding soft tissue contusion. Mild swelling in center of contusion without fluctuance, warmth, erythema) Results - Vitals Vitals: Vital Signs - 24 hr 03/02/23 13:30 Temperature 36.6 C Heart Rate 67 Respiratory 18 Rate Blood Pressure 152/89 H O2 Saturation 99 Oxygen O2 Source Room air PD Medical Decision Making - ED course Complexity details: reviewed results, re-evaluated patient, considered differential, d/w patient ED course: Well-appearing patient presenting for third rabies shot. Bite brittany appears to be healing with no evidence of cellulitis or infection. Patient does appear to have a contusion on the anterior thigh with probable hematoma. There is no evidence of cellulitis or infection at this time. Patient was advised to place a compression bandage around the thigh to help the hematoma resorb. Given a compression dressing and [place] wrap bandage in the emergency department. Appropriate return precautions discussed with patient. Departure - Departure Disposition: 01 Home, Self Care Clinical Impression: Hematoma, Need for rabies vaccination Condition: Stable Instructions: ED Hematoma Comments: You have received your third rabies vaccination today. You will need vaccination on day 10 and day 14 from your initial exposure. Forms: PCP List Discharge Date/Time: 03/02/23 14:38
== END 2023-03-02 14:38 | disposition home or self-care (01) ==
LOC: ED 13:14
DX: Z20.3 Contact with and (suspected) exposure to rabies (principal); Z23 Encounter for immunization; S70.11XA Contusion of right thigh, initial encounter; W54.0XXA Bitten by dog, initial encounter; Z79.84 Long term (current) use of oral hypoglycemic drugs
CPT/HCPCS: 90471; 99282

== ENCOUNTER 2023-03-05 12:44 | Emergency (ER) | payer OTHER ==
[2023-03-05 13:31] VITALS: BP 142/69; O2SAT 99
== END 2023-03-05 13:40 | disposition left against medical advice (07) ==
LOC: ED 12:44
DX: Z53.21 Procedure and treatment not carried out due to patient leaving prior to being seen by health care provider (principal)

== ENCOUNTER 2023-03-09 07:38 | Emergency (ER) | payer OTHER ==
[2023-03-09 08:12] VITALS: BP 136/70; O2SAT 100
[2023-03-09] MEDS ORDERED: RABIES VACCINE 2.5 UNIT SYRINGE IM ONE (09:32)
--- NOTE | 2023-03-09 09:36 | ED Physician Documentation ---
History of Present Illness - Stated complaint Stated Complaint: RABIES SHOT - Chief complaint Chief Complaint: General - History obtained from History obtained from: Patient - Additonal information Additional information: Here for her last rabies vaccine. Still having a lot of leg pain from the dog bite. No fevers or symptoms of infection. 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 HEENT: Tonsil/Adenoidectomy - Present Medications Home Medications: Ambulatory Orders Medication Instructions Recorded Confirmed metFORMIN [Glucophage] 500 mg PO DAILY 02/23/23 03/09/23 HYDROcod/ACETAM 5/325 [[place] 5/325] 1 - 2 tab PO Q6H PRN #15 tablet 03/09/23 - Allergies Allergies/Adverse Reactions: Allergies Allergy/AdvReac Type Severity Reaction Status Date / Time No Known Drug Allergies Allergy Verified 03/09/23 07:49 - Social History Does the pt smoke?: No Smoking Status: Never smoker Does the pt drink ETOH?: Yes Does the pt have substance abuse?: No - Immunizations Immunizations are current?: Yes - POLST Patient has POLST: No PD ED PE NORMAL - Vitals Vital signs reviewed: Yes - General General: Alert and oriented X 3, No acute distress - Extremities Extremities: Other (Significant bruising and swelling still around the right thigh where she was bitten. No warmth or redness or cellulitis.) - Neuro Neuro: Alert and oriented X 3 Results - Vitals Vitals: Vital Signs - 24 hr 03/09/23 07:50 Temperature 36.6 C Heart Rate 68 Respiratory 16 Rate Blood Pressure 136/70 H O2 Saturation 100 Oxygen O2 Source Room air PD Medical Decision Making - ED course ED course: Final rabies vaccine administered Departure - Departure Disposition: 01 Home, Self Care Clinical Impression: Animal bite with open wound, Need for rabies vaccination Condition: Good Record reviewed to determine appropriate education?: Yes Instructions: ED Wound Care Prescriptions: HYDROcod/ACETAM 5/325 [[place] 5/325] 1 - 2 tab PO Q6H PRN #15 tablet PRN Reason: Pain Comments: You are now fully vaccinated for rabies. I sent the prescription electronically to [facility] in [place]. Return if you develop signs or symptoms of infection such as fevers or a lot of redness or warmth in the area. Now it is just looking bruised and swollen. I am prescribing a short course of narcotic pain medication for you. These are potentially dangerous and addictive medications that should be used carefully. These medications may constipate you. Take an mjuo-ing-fnjrfzl stool softener (docusate) twice daily with plenty of water while taking these medications. If you go 24 hours without a bowel movement, take gmhf-ysm-czmnssw miralax, per package instructions. Do not drink or drive while taking these medications. If you received narcotic or sedating medications while in the emergency department, do not drive for 24 hours. Store this medication in a safe, secure place and out of reach of children. It is a violation of federal law to give or sell this medication to another person or to use in a manner other than prescribed. The ED will not refill narcotic prescriptions, including prescriptions lost or stolen. To dispose of unwanted medications: 1. [facility] provides a drop box for medication in pill form only (no liquids) 8:00 am to 4:30 p.m. Friday-Friday in the lobby of the [facility], [address] [place] [address]. Empty pills into ziplock bag before disposal. Call [phone] for information. 2.[employer] is a free service available to all [facility] residents. Go to [email or web address]/locations/[email or web address]/ Note that many narcotic pain relievers also contain Tylenol/acetaminophen. Please ensure that your total dose of acetaminophen from all sources does not exceed 3 g (3000 mg) per day. Forms: PCP List
== END 2023-03-09 09:49 | disposition home or self-care (01) ==
LOC: ED 07:38
DX: Z29.14 Encounter for prophylactic rabies immune globulin (principal)
CPT/HCPCS: 90471; 99282

== ENCOUNTER 2023-10-07 10:03 | Emergency (ER) | payer OTHER ==
[2023-10-07 10:45] LABS: BILIRUBIN,URINE NEGATIVE (NEGATIVE); GLUCOSE, URINE (UA) NEGATIVE (NEGATIVE); KETONES,URINE (UA) NEGATIVE (NEGATIVE); LEUKOCYTE ESTERASE, URINE NEGATIVE (NEGATIVE); NITRITE,URINE NEGATIVE (NEGATIVE); OCCULT BLOOD,URINE NEGATIVE (NEGATIVE); PH,URINE 6.5 PH (5.0-7.5); PROTEIN,URINE NEGATIVE (NEGATIVE); UROBILINOGEN,URINE 0.2 (NORMAL) E.U./dL (NORMAL)
[2023-10-07 10:46] LABS: CLARITY,URINE CLEAR (CLEAR)
[2023-10-07 10:47] LABS: HCG UR QUAL NEGATIVE
--- NOTE | 2023-10-07 10:51 | XRAY Report ---
PROCEDURE: Chest 1V INDICATIONS: Chest Pain TECHNIQUE: One view of the chest was acquired. COMPARISON: None. FINDINGS: Surgical changes and devices: None. Lungs and pleura: No pleural effusions or pneumothorax. Lungs are clear. Mediastinum: Mediastinal contours appear normal. Heart size is normal. Bones and chest wall: No suspicious bony lesions. Overlying soft tissues appear unremarkable. IMPRESSION: No acute cardiopulmonary process. Reviewed by: Aniket Bravo MD on 10/07/2023 10:50 AM PDT Approved by: Aniket Bravo MD on 10/07/2023 10:50 AM PDT Station ID: [id number]
[2023-10-07 10:57] LABS: BASOPHILS # (AUTO) 0.1 10^3/uL (0.0-0.1); BASOPHILS % (AUTO) 0.8 %; EOSINOPHILS # (AUTO) 0.2 10^3/uL (0.0-0.7); EOSINOPHILS % (AUTO) 2.4 %; HCT - HEMATOCRIT 40.4 % (37.0-47.0); HGB - HEMOGLOBIN 13.5 g/dL (12.0-16.0); LYMPHOCYTES # (AUTO) 2.3 10^3/uL (1.5-3.5); LYMPHOCYTES % (AUTO) 32.2 %; MEAN CORPUSCULAR HEMOGLOBIN 30.7 pg (27.0-31.0); MEAN CORPUSCULAR HGB CONC 33.4 g/dL (32.0-36.0); MEAN CORPUSCULAR VOLUME 91.8 fL (81.0-99.0); MONOCYTES # (AUTO) 0.3 10^3/uL (0.0-1.0); MONOCYTES % (AUTO) 4.7 %; NEUTROPHILS # (AUTO) 4.3 10^3/uL (1.5-6.6); NEUTROPHILS % (AUTO) 59.8 %; PLT - PLATELET COUNT 306 10^3/uL (130-450); RED CELL DISTRIBUTION WIDTH 12.1 % (12.0-15.0); WHITE BLOOD COUNT 7.2 x10^3/uL (4.8-10.8)
[2023-10-07 11:12] LABS: ALBUMIN 4.4 g/dL (3.2-5.5); ALBUMIN/GLOBULIN RATIO 1.6 (1.0-2.2); ALKALINE PHOSPHATASE 65 IU/L (42-121); ALT ALANINE AMINOTRANSFERASE 14 IU/L (10-60); AST ASPARTATE AMINOTRANSFERASE 15 IU/L (10-42); BILIRUBIN,TOTAL 0.6 mg/dL (0.2-1.0); BUN - BLOOD UREA NITROGEN 9 mg/dL (6-20); CALCIUM 9.6 mg/dL (8.5-10.3); CARBON DIOXIDE - CO2 30 mmol/L (21-32); CHLORIDE 104 mmol/L (101-111); CREATININE 0.7 mg/dL (0.6-1.3); GFR - MDRD 96 (>89); GLUCOSE 107 mg/dL (74-104); POTASSIUM 3.9 mmol/L (3.5-4.5); SODIUM 138 mmol/L (135-145); TOTAL PROTEIN 7.1 g/dL (6.4-8.9)
[2023-10-07 11:17] LABS: LIPASE < 10 U/L (11-82)
[2023-10-07 11:18] LABS: TROPONIN I HIGH SENSITIVITY < 2.3 ng/L (2.3-14.8)
[2023-10-07] MEDS: ONDANSETRON 4 MG/2 ML VIAL IVP STA (11:41)
[2023-10-07] MEDS: FAMOTIDINE 20 MG/2 ML VIAL IVP STA (11:41)
--- NOTE | 2023-10-07 12:01 | ED Physician Documentation ---
History of Present Illness - Stated complaint Stated Complaint: BACK/CHEST PX/NAUSEA - Chief complaint Chief Complaint: Cardiac - Additonal information Additional information: Patient is a 33-year-old female with no significant past medical history presents to the emergency department with pain between bilateral scapula and shortness of breath. She notes symptoms have been going on for about a day and a half. She notes she is having worsening reflux symptoms and was taking Tums at home with relief initially but this does not seem to be working for her anymore. She denies any history of reflux in the past. She notes mild nausea but no episodes of emesis. She has some mild epigastric pain associated with her symptoms and anterior chest pain as well. She notes pain worsens with taking a deep breath but denies any specific shortness of breath. She denies any lower leg swelling. She notes some dizziness and lightheadedness symptoms with her pain. She describes her pain as stabbing and 8 out of 10 in intensity. No history of DVT or PE no recent travel patient does have a Mirena IUD in place. She denies any history of abdominal surgeries no history of daily drinking or substance abuse. She has no history of coronary artery disease and does not smoke. 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 HEENT: Tonsil/Adenoidectomy - Present Medications Home Medications: Ambulatory Orders Medication Instructions Recorded Confirmed metFORMIN [Glucophage] 500 mg PO DAILY 02/23/23 10/07/23 Famotidine [Pepcid] 20 mg PO BID #60 tablet 10/07/23 Naproxen 250 mg PO BID PRN #15 tablet 10/07/23 - Allergies Allergies/Adverse Reactions: Allergies Allergy/AdvReac Type Severity Reaction Status Date / Time No Known Drug Allergies Allergy Verified 10/07/23 10:28 - Social History Does the pt smoke?: No Smoking Status: Never smoker Does the pt drink ETOH?: Yes Does the pt have substance abuse?: No - Immunizations Immunizations are current?: Yes - POLST Patient has POLST: No PD ED PE NORMAL - General General: Alert and oriented X 3 - HEENT HEENT: Atraumatic, PERRL, EOMI, Ears normal, Moist mucous membranes, Pharynx benign - Neck Neck: Supple, no meningeal sign, No JVD - Cardiac Cardiac: RRR, No murmur, No gallop, No rub, Other - Respiratory Respiratory: No respiratory distress, Clear bilaterally - Abdomen Abdomen: Other (Reproducible epigastric tenderness on abdominal palpation however abdomen is soft without rebound or guarding. Negative Matthew sign on examination.) - Back Back: No CVA TTP - Derm Derm: Normal color, No rash, Other - Extremities Extremities: No deformity, No tenderness to palpate - Neuro Neuro: Alert and oriented X 3 - Psych Psych: Normal mood Results - Vitals Vitals: Vital Signs - 24 hr 10/07/23 10/07/23 10:15 12:22 Temperature 36.5 C Heart Rate 64 68 Respiratory 18 11 L Rate Blood Pressure 136/73 H 122/72 O2 Saturation 99 100 Oxygen O2 Source Room air - Labs Labs: Laboratory Tests 10/07/23 10/07/23 10/07/23 10:35 10:52 10:52 WBC 7.2 RBC 4.40 Hgb 13.5 Hct 40.4 MCV 91.8 MCH 30.7 MCHC 33.4 RDW 12.1 Plt Count 306 MPV 10.0 Neut # (Auto) 4.3 Lymph # (Auto) 2.3 [place] # (Auto) 0.3 Eos # (Auto) 0.2 Baso # (Auto) 0.1 Absolute Nucleated RBC 0.00 Nucleated RBC % 0.0 D-Dimer Sodium 138 Potassium 3.9 Chloride 104 Carbon Dioxide 30 Anion Gap 4.0 L BUN 9 Creatinine 0.7 Estimated GFR (MDRD) 96 Glucose 107 H Calcium 9.6 Total Bilirubin 0.6 AST 15 ALT 14 Alkaline Phosphatase 65 Troponin I High Sens < 2.3 L Total Protein 7.1 Albumin 4.4 Globulin 2.7 Albumin/Globulin Ratio 1.6 Lipase < 10 L Urine Color LIGHT YELLOW Urine Clarity CLEAR Urine pH 6.5 Ur Specific [place] 1.010 Urine Protein NEGATIVE Urine Glucose (UA) NEGATIVE Urine Ketones NEGATIVE Urine Occult Blood NEGATIVE Urine Nitrite NEGATIVE Urine Bilirubin NEGATIVE Urine Urobilinogen 0.2 (NORMAL) Ur Leukocyte Esterase NEGATIVE Ur Microscopic Review NOT INDICATED Urine Culture Comments NOT INDICATED Urine HCG, Qual NEGATIVE 10/07/23 11:50 WBC RBC Hgb Hct MCV MCH MCHC RDW Plt Count MPV Neut # (Auto) Lymph # (Auto) [place] # (Auto) Eos # (Auto) Baso # (Auto) Absolute Nucleated RBC Nucleated RBC % D-Dimer < 200.0 L Sodium Potassium Chloride Carbon Dioxide Anion Gap BUN Creatinine Estimated GFR (MDRD) Glucose Calcium Total Bilirubin AST ALT Alkaline Phosphatase Troponin I High Sens Total Protein Albumin Globulin Albumin/Globulin Ratio Lipase Urine Color Urine Clarity Urine pH Ur Specific [place] Urine Protein Urine Glucose (UA) Urine Ketones Urine Occult Blood Urine Nitrite Urine Bilirubin Urine Urobilinogen Ur Leukocyte Esterase Ur Microscopic Review Urine Culture Comments Urine HCG, Qual PD Medical Decision Making - ED course Complexity details: reviewed old records, reviewed results, re-evaluated patient, d/w patient ED course: Patient is a 33-year-old female presenting to the emergency department with epigastric chest pain and posterior thoracic pain. Symptoms have been going on for approximately a day and a half patient was at her PCP who sent her here to the emergency department due to symptoms. Patient denies any trauma no previous history of coronary artery disease no history of smoking. She notes she is having worsening reflux earlier this week but denies any history of reflux symptoms. Vitals on arrival are reassuring she is afebrile nontachycardic and normotensive. Physical exam shows reproducible mild epigastric tenderness but no palpable thoracic spinous process tenderness no step-off no obvious signs of trauma or bruising noted. Labs obtained while patient here in the triage room. No appreciable leukocytosis hemoglobin is stable and lipase is less than 10 low suspicion for any pancreatitis findings. No significant elevation in LFTs or bilirubin lower suspicion for any acute cholecystitis. Patient's urine analysis and test returned negative is reassuring to patient and will give Pepcid and Zofran here in the emergency department. Given pleuritic symptoms patient tested with ddimer. Chest x-ray here in the emergency department showed no acute cardiopulmonary process. Patient notes symptoms have improved also requesting ibuprofen or naproxen for her upper back pain as well for movement. Will send prescription of Pepcid for reflux symptoms and naproxen for thoracic back pain. Instructed patient if pain worsen she develops nausea vomiting abdominal pain fevers or chills she should return to emergency department. Patient understands she will follow-up with her PCP. Departure - Departure Disposition: 01 Home, Self Care Clinical Impression: Atypical chest pain, GERD (gastroesophageal reflux disease), Thoracic back pain Condition: Good Instructions: ED GERD, ED Chest Pain Pleurisy, ED Chest Pain Noncardiac Ch Comments: You were seen here in the emergency department for your chest pain and reflux symptoms as started you on Pepcid your heart was cleared no concerns for any cardiac disease at this time you should take Pepcid morning and night to see if this helps your symptoms and follow-up with your PCP in the outpatient setting. You should return to the emergency department with any new or worsening symptoms.Take naproxen for your upper back pain as well and follow-up for symptoms in outpatient setting. Forms: PCP List
[2023-10-07 13:41] VITALS: BP 125/82; O2SAT 98
== END 2023-10-07 13:34 | disposition home or self-care (01) ==
LOC: ED 10:03
DX: K21.9 Gastro-esophageal reflux disease without esophagitis (principal); R07.89 Other chest pain; M54.6 Pain in thoracic spine
CPT/HCPCS: 36415; 80053; 81001; 81003; 81025; 83690; 84484; 85025; 85379; 87086; 93005; 96374; 99283